=== PATIENT | male | born 1980 | race Caucasian/White ===

== ENCOUNTER 2016-12-06 20:32 | Emergency (ER) | payer OTHER ==
[~2016-12-06] VITALS: Ht 180.3 cm; Wt 104.5 kg
[2016-12-06 20:39] VITALS: BP 137/89; PULSE 89; RESP 20; O2SAT 96
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
[2016-12-06 22:25] LABS: Mean Corpuscular Hemoglobin 29.1 pg (27.0-35.0); Mean Corpuscular Volume 85.7 fL (81-100)
[2016-12-06 22:45] VITALS: BP 129/87; PULSE 78; RESP 16; O2SAT 97
== END 2016-12-06 22:45 | disposition home or self-care (01) ==
LOC: SED 20:32
DX: R44.0 Auditory hallucinations (principal); F25.0 Schizoaffective disorder, bipolar type; R45.851 Suicidal ideations; G40.909 Epilepsy, unspecified, not intractable, without status epilepticus; F17.200 Nicotine dependence, unspecified, uncomplicated
CPT/HCPCS: 36415; 80053; 82075; 85027; 99283; G0480